=== PATIENT | female | born 1995 | race African-American/Black ===

== ENCOUNTER 2019-02-04 22:45 | Inpatient (IN) | payer OTHER ==
[~2019-02-04] VITALS: Ht 160 cm; Wt 52.2 kg
[2019-02-04] MEDS ORDERED: SODIUM CHLORIDE 0.9% 1,000 ML IV ONE (23:41)
[2019-02-04] MEDS ORDERED: ONDANSETRON HCL 4MG/2ML INJ IV STA (23:41)
[2019-02-04] MEDS ORDERED: MORPHINE SULFATE 4 MG/ML CPJ (NOT FOR IM USE) IV STA (23:41)
[2019-02-04] MEDS ORDERED: LORAZEPAM 2MG/ML CPJ IV ONE (23:45)
[2019-02-05 00:37] LABS: CLARITY URINE CLEAR (CLEAR); COLOR URINE YELLOW (YELLOW); KETONES URINE NEGATIVE (NEGATIVE); LEUKOCYTE ESTERASE URINE NEGATIVE (NEGATIVE); NITRITE URINE NEGATIVE (NEGATIVE); OCCULT BLOOD URINE NEGATIVE (NEGATIVE); PH URINE 6.5 (4.5-8.0); PROTEIN URINE NEGATIVE (NEGATIVE); SPECIFIC GRAVITY URINE 1.002 (1.005-1.030); UROBILINOGEN URINE 0.2 E.U./dL (0.2-1.0)
[2019-02-05 00:42] LABS: CHLORIDE 104 mEq/L (98-107)
[2019-02-05 00:49] LABS: *AMPHETAMINES SCREEN URINE NEGATIVE (NEGATIVE); *BARBITURATES SCREEN URINE NEGATIVE (NEGATIVE); *BENZODIAZEPINES SCREEN URINE NEGATIVE (NEGATIVE); *COCAINE SCREEN URINE NEGATIVE (NEGATIVE); PHENCYCLIDINE URINE SCREEN NEGATIVE (NEGATIVE)
[2019-02-05 00:50] LABS: METHADONE URINE SCREEN NEGATIVE (NEGATIVE)
[2019-02-05 00:56] LABS: CANNABINOID URINE SCREEN PRESUMTIVE POSITIVE (NEGATIVE); OPIATES URINE SCREEN PRESUMTIVE POSITIVE (NEGATIVE)
[2019-02-05 01:00] LABS: HEMATOCRIT. 25.3 % (36.0-48.0); HEMOGLOBIN. 9.2 g/dL (12.0-16.0); MEAN CORPUSCULAR HEMOGLOBIN 36.4 pg (28.0-32.0); MEAN PLATELET VOLUME 9.5 fl (7.4-10.4); PLATELET 472 x1000/uL (130-400); RED BLOOD CELL COUNT 2.53 mill/uL (4.2-5.4); RED CELL DISTRIBUTION WIDTH 18.7 % (11.6-14.6)
[2019-02-05 01:46] LABS: NUCLEATED RED BLOOD CELLS 3 /100 WBC; PLATELET ESTIMATE INCREASED
[2019-02-05] MEDS ORDERED: KETOROLAC 30MG/ML VIAL IV ONE (02:00)
[2019-02-05] MEDS ORDERED: MIDAZOLAM HCL 2 MG/2 ML VIAL IV ONE (02:00)
[2019-02-05 04:00] VITALS: BP 102/59
[2019-02-05] MEDS ORDERED: MORPHINE SULFATE 2 MG/ML CPJ (NOT FOR IM USE) IV PRN (05:30)
[2019-02-05 05:52] VITALS: BP 102/59
[2019-02-05] MEDS ORDERED: HYDROMORPHONE HCL/PF 2MG/ML CPJ IV PRN (06:30)
[2019-02-05] MEDS: SODIUM CHLORIDE 0.9% 1,000 ML IV SCH (06:46)
[2019-02-05 08:00] VITALS: BP 108/63
[2019-02-05 08:27] LABS: EOSINOPHILS % 2.2 % (0.0-5.0); HEMATOCRIT. 25.6 % (36.0-48.0); HEMOGLOBIN. 8.9 g/dL (12.0-16.0); LYMPHOCYTES % 20.9 % (20.0-50.0); MEAN CORPUSCULAR HEMOGLOBIN 35.6 pg (28.0-32.0); MEAN PLATELET VOLUME 9.2 fl (7.4-10.4); NEUTROPHILS % 66.9 % (40.0-76.0); PLATELET 426 x1000/uL (130-400); RED CELL DISTRIBUTION WIDTH 18.4 % (11.6-14.6)
[2019-02-05 08:29] LABS: CHLORIDE 110 mEq/L (98-107)
[2019-02-05] MEDS: ASCORBIC ACID 500 MG TABLET PO SCH ×2 (09:00→20:48)
[2019-02-05] MEDS ORDERED: HYDROCODONE/ACETAMINOPHEN 5/325MG TABLET PO PRN (09:15)
[2019-02-05] MEDS: HYDROMORPHONE HCL/PF 2MG/ML CPJ IV PRN ×3 (09:22→20:46)
[2019-02-05 12:00] VITALS: BP 95/53
[2019-02-05] MEDS ORDERED: ONDANSETRON HCL 4MG/2ML INJ IV PRN (13:00)
[2019-02-05] MEDS ORDERED: ONDANSETRON INJ IV PRN (13:30)
[2019-02-05] MEDS ORDERED: NALOXONE INJ IV PRN (13:30)
[2019-02-05] MEDS: OXYCODONE HCL/ACETAMINOPHEN 5/325MG TABLET PO PRN (14:07)
[2019-02-05] MEDS: HYDROXYUREA 500MG CAPSULE PO SCH ×2 (14:07→16:38)
[2019-02-05] MEDS: FOLIC ACID 1MG TABLET PO SCH (14:07)
[2019-02-05] MEDS: CEFTRIAXONE 1 G PREMIX 50 ML IV SCH (14:08)
[2019-02-05] MEDS ORDERED: OXYC-105 MT (15:18)
[2019-02-05] MEDS ORDERED: FOLI-43 MT (15:18)
[2019-02-05] MEDS ORDERED: HYDR500C MT (15:18)
[2019-02-05] MEDS: HYDROMORPHONE PCA 10MG/50ML IV PRN (15:58)
[2019-02-05 16:00] VITALS: BP 97/49
[2019-02-05] MEDS ORDERED: KETOROLAC 15MG/ML VIAL IV PRN (16:15)
[2019-02-05] MEDS: AZITHROMYCIN 500 MG TABLET PO SCH (16:38)
[2019-02-05 20:40] VITALS: BP 104/70
[2019-02-05] MEDS: DIPHENHYDRAMINE INJ IV PRN (20:48)
[2019-02-06 00:41] VITALS: BP 116/64
[2019-02-06] MEDS: SODIUM CHLORIDE 0.9% 1,000 ML IV SCH ×2 (02:06→09:53)
[2019-02-06 04:00] VITALS: BP 103/68
[2019-02-06] MEDS: DIPHENHYDRAMINE INJ IV PRN ×3 (06:24→21:57)
[2019-02-06 08:00] VITALS: BP 105/71
[2019-02-06 09:43] LABS: HEMATOCRIT. 25.9 % (36.0-48.0); MEAN CORPUSCULAR HEMOGLOBIN 35.4 pg (28.0-32.0); MEAN CORPUSCULAR VOLUME 102.4 fL (81.0-99.0); MEAN PLATELET VOLUME 9.2 fl (7.4-10.4); PLATELET 453 x1000/uL (130-400); RED BLOOD CELL COUNT 2.53 mill/uL (4.2-5.4); RED CELL DISTRIBUTION WIDTH 16.1 % (11.6-14.6)
[2019-02-06] MEDS: FOLIC ACID 1MG TABLET PO SCH (09:51)
[2019-02-06] MEDS: ASCORBIC ACID 500 MG TABLET PO SCH ×2 (09:51→21:28)
[2019-02-06] MEDS: HYDROXYUREA 500MG CAPSULE PO SCH ×3 (09:51→17:14)
[2019-02-06] MEDS: AZITHROMYCIN 500 MG TABLET PO SCH (09:51)
[2019-02-06 10:00] LABS: CHLORIDE 105 mEq/L (98-107)
[2019-02-06 12:00] VITALS: BP 113/62
[2019-02-06] MEDS: HYDROMORPHONE HCL/PF 2MG/ML CPJ IV PRN ×2 (12:20→17:40)
[2019-02-06] MEDS: CEFTRIAXONE 1 G PREMIX 50 ML IV SCH (13:19)
[2019-02-06 16:00] VITALS: BP 110/62
[2019-02-06] MEDS: ACETAMINOPHEN 325MG TABLET PO PRN (17:14)
[2019-02-06 19:08] LABS: NUCLEATED RED BLOOD CELLS 4 /100 WBC; PLATELET ESTIMATE INCREASED
[2019-02-06 20:00] VITALS: BP 104/65
[2019-02-06] MEDS: OXYCODONE HCL/ACETAMINOPHEN 5/325MG TABLET PO PRN (20:23)
[2019-02-06] MEDS: HYDROMORPHONE PCA 10MG/50ML IV PRN (21:15)
[2019-02-07] VITALS (7 sets, daily range): BP systolic 99–127; BP diastolic 60–90
[2019-02-07] MEDS: SODIUM CHLORIDE 0.9% 1,000 ML IV SCH ×2 (00:21→13:04)
[2019-02-07] MEDS: HYDROMORPHONE HCL/PF 2MG/ML CPJ IV PRN ×4 (00:22→19:39)
[2019-02-07] MEDS: OXYCODONE HCL/ACETAMINOPHEN 5/325MG TABLET PO PRN ×2 (06:45→21:57)
[2019-02-07 07:05] LABS: CHLORIDE 105 mEq/L (98-107)
[2019-02-07 07:07] LABS: HEMATOCRIT. 22.2 % (36.0-48.0); HEMOGLOBIN. 7.9 g/dL (12.0-16.0); MEAN CORPUSCULAR HEMOGLOBIN 35.1 pg (28.0-32.0); MEAN CORPUSCULAR VOLUME 98.9 fL (81.0-99.0); PLATELET 313 x1000/uL (130-400); RED BLOOD CELL COUNT 2.25 mill/uL (4.2-5.4); RED CELL DISTRIBUTION WIDTH 16.1 % (11.6-14.6)
[2019-02-07] MEDS: ASCORBIC ACID 500 MG TABLET PO SCH ×2 (09:44→21:14)
[2019-02-07] MEDS: HYDROXYUREA 500MG CAPSULE PO SCH ×4 (09:44→17:33)
[2019-02-07] MEDS: AZITHROMYCIN 500 MG TABLET PO SCH (09:44)
[2019-02-07] MEDS: FOLIC ACID 1MG TABLET PO SCH (09:44)
[2019-02-07] MEDS: CEFTRIAXONE 1 G PREMIX 50 ML IV SCH (13:04)
[2019-02-07] MEDS ORDERED: MORPHINE SULFATE 4 MG/ML CPJ (NOT FOR IM USE) IV SCH (14:15)
[2019-02-07] MEDS ORDERED: SODIUM CHLORIDE 0.9% 1,000 ML IV SCH (14:15)
[2019-02-07 17:16] LABS: BG BASE EXCESS -1.7 mmol/L (-2.0-2.0); BG CARBOXYHEMOGLOBIN 3.9 % (0.5-1.5); BG DEOXYHEMOGLOBIN 0.7 % (0.0-5.0); BG FRACTION INSPIRED OXYGEN 100; BG HCO3 ACT 22.3 mmol/L (22.0-26.0); BG METHEMOGLOBIN 0.7 % (0.0-1.5); BG OXYGEN SATURATION 99.3 % (92.0-98.5); BG OXYHEMOGLOBIN 94.7 % (94.0-97.0); BG PCO2 33.8 mmHg (35.0-45.0); BG PH 7.438 (7.350-7.450); BG PO2 187.2 mmHg (75.0-100.0); BG SAMPLE SITE RIGHT BRACHIAL; BG TOTAL HEMOGLOBIN 6.5 g/dL (12.0-18.0); BG VENT MODE MASK - NRB
[2019-02-07] MEDS ORDERED: METOPROLOL TARTRATE 5MG/5ML VIAL IV NR (18:00)
[2019-02-07] MEDS ORDERED: METOPROLOL TARTRATE 5MG/5ML VIAL IV PRN (18:00)
[2019-02-07 20:29] LABS: PLATELET ESTIMATE NORMAL
[2019-02-07] MEDS ORDERED: METOPROLOL TARTRATE 25MG TABLET PO SCH (21:00)
[2019-02-07] MEDS: HYDROMORPHONE PCA 10MG/50ML IV PRN (21:26)
[2019-02-08] VITALS (14 sets, daily range): BP systolic 94–121; BP diastolic 54–78
[2019-02-08] MEDS: DIPHENHYDRAMINE INJ IV PRN ×4 (04:48→20:46)
[2019-02-08] MEDS: ACETAMINOPHEN 325MG TABLET PO PRN (04:48)
[2019-02-08 07:50] LABS: BG BASE EXCESS -1.5 mmol/L (-2.0-2.0); BG CARBOXYHEMOGLOBIN 0.9 % (0.5-1.5); BG DEOXYHEMOGLOBIN 0.5 % (0.0-5.0); BG FRACTION INSPIRED OXYGEN 100; BG HCO3 ACT 22.3 mmol/L (22.0-26.0); BG METHEMOGLOBIN 0.7 % (0.0-1.5); BG OXYGEN SATURATION 99.5 % (92.0-98.5); BG OXYHEMOGLOBIN 97.9 % (94.0-97.0); BG PCO2 33.5 mmHg (35.0-45.0); BG PH 7.442 (7.350-7.450); BG PO2 339.9 mmHg (75.0-100.0); BG SAMPLE SITE RIGHT BRACHIAL; BG TOTAL HEMOGLOBIN 7.7 g/dL (12.0-18.0); BG VENT MODE MASK - NRB
[2019-02-08] MEDS: HYDROXYUREA 500MG CAPSULE PO SCH ×3 (08:35→18:25)
[2019-02-08] MEDS: ASCORBIC ACID 500 MG TABLET PO SCH ×2 (08:35→20:23)
[2019-02-08] MEDS: FOLIC ACID 1MG TABLET PO SCH (08:35)
[2019-02-08] MEDS: AZITHROMYCIN 500 MG TABLET PO SCH (08:35)
[2019-02-08] MEDS: SODIUM CHLORIDE 0.9% 1,000 ML IV SCH (08:47)
[2019-02-08 10:36] LABS: MEAN CORPUSCULAR HEMOGLOBIN 32.8 pg (28.0-32.0); MEAN CORPUSCULAR VOLUME 92.5 fL (81.0-99.0); MEAN PLATELET VOLUME 9.9 fl (7.4-10.4); PLATELET 335 x1000/uL (130-400); RED BLOOD CELL COUNT 2.09 mill/uL (4.2-5.4); RED CELL DISTRIBUTION WIDTH 18.1 % (11.6-14.6)
[2019-02-08 10:40] LABS: CHLORIDE 109 mEq/L (98-107); HEMATOCRIT. 19.4 % (36.0-48.0); HEMOGLOBIN. 6.9 g/dL (12.0-16.0)
[2019-02-08] MEDS ORDERED: DIPHENHYDRAMINE 50MG/ML VIAL IV NR (11:00)
[2019-02-08] MEDS ORDERED: ACETAMINOPHEN 325MG TABLET PO NR (11:00)
[2019-02-08] MEDS: DEXT 5%/0.45% NACL 1000ML 1,000 ML IV SCH ×2 (11:22→20:23)
[2019-02-08 11:25] LABS: NUCLEATED RED BLOOD CELLS 3 /100 WBC; PLATELET ESTIMATE NORMAL
[2019-02-08] MEDS: CEFTRIAXONE 1 G PREMIX 50 ML IV SCH (15:43)
[2019-02-08] MEDS: OXYCODONE HCL/ACETAMINOPHEN 5/325MG TABLET PO PRN (16:48)
[2019-02-08 17:48] LABS: HCG SCREEN NEGATIVE
[2019-02-08] MEDS: HYDROMORPHONE PCA 10MG/50ML IV PRN (18:04)
[2019-02-09] VITALS: BP 105/66
[2019-02-09] MEDS: HYDROMORPHONE HCL/PF 2MG/ML CPJ IV PRN ×4 (01:10→20:29)
[2019-02-09 04:00] VITALS: BP 111/68
[2019-02-09] MEDS: DIPHENHYDRAMINE INJ IV PRN ×3 (04:33→19:59)
[2019-02-09] MEDS: OXYCODONE HCL/ACETAMINOPHEN 5/325MG TABLET PO PRN (04:34)
[2019-02-09] MEDS: DEXT 5%/0.45% NACL 1000ML 1,000 ML IV SCH ×2 (05:33→12:48)
[2019-02-09 05:50] LABS: CHLORIDE 107 mEq/L (98-107)
[2019-02-09 06:29] LABS: BASOPHILS % 1.3 % (0.0-2.0); EOSINOPHILS % 2.5 % (0.0-5.0); HEMATOCRIT. 23.6 % (36.0-48.0); HEMOGLOBIN. 8.2 g/dL (12.0-16.0); LYMPHOCYTES % 13.8 % (20.0-50.0); MEAN CORPUSCULAR HEMOGLOBIN 31.7 pg (28.0-32.0); MEAN CORPUSCULAR VOLUME 91.8 fL (81.0-99.0); NEUTROPHILS % 72.4 % (40.0-76.0); PLATELET 355 x1000/uL (130-400); RED BLOOD CELL COUNT 2.57 mill/uL (4.2-5.4); RED CELL DISTRIBUTION WIDTH 18.3 % (11.6-14.6)
[2019-02-09 08:00] VITALS: BP 102/68
[2019-02-09] MEDS: FOLIC ACID 1MG TABLET PO SCH (08:42)
[2019-02-09] MEDS: HYDROXYUREA 500MG CAPSULE PO SCH ×3 (08:42→17:03)
[2019-02-09] MEDS: AZITHROMYCIN 500 MG TABLET PO SCH (08:42)
[2019-02-09] MEDS: ASCORBIC ACID 500 MG TABLET PO SCH ×2 (08:42→21:00)
[2019-02-09] MEDS ORDERED: POTASSIUM CHLORIDE 20MEQ TABLET SR PO SCH (11:00)
[2019-02-09 12:28] VITALS: BP 102/64
[2019-02-09] MEDS: CEFTRIAXONE 1 G PREMIX 50 ML IV SCH (13:59)
[2019-02-09 16:31] VITALS: BP 108/71
[2019-02-09 20:00] VITALS: BP 101/67
[2019-02-09] MEDS: HYDROMORPHONE PCA 10MG/50ML IV PRN (20:52)
[2019-02-10] VITALS: BP 107/63
[2019-02-10] MEDS: DEXT 5%/0.45% NACL 1000ML 1,000 ML IV SCH ×3 (00:05→16:46)
[2019-02-10] MEDS: HYDROMORPHONE HCL/PF 2MG/ML CPJ IV PRN ×6 (00:21→21:30)
[2019-02-10 04:00] VITALS: BP 107/67
[2019-02-10 07:57] VITALS: BP 114/63
[2019-02-10] MEDS: HYDROXYUREA 500MG CAPSULE PO SCH ×3 (09:01→16:43)
[2019-02-10] MEDS: ASCORBIC ACID 500 MG TABLET PO SCH ×2 (09:02→20:19)
[2019-02-10] MEDS: FOLIC ACID 1MG TABLET PO SCH (09:02)
[2019-02-10] MEDS: AZITHROMYCIN 500 MG TABLET PO SCH (09:02)
[2019-02-10] MEDS: DIPHENHYDRAMINE INJ IV PRN ×3 (10:09→20:18)
[2019-02-10 12:00] VITALS: BP 111/59
[2019-02-10] MEDS: CEFTRIAXONE 1 G PREMIX 50 ML IV SCH (15:14)
[2019-02-10] MEDS: ACETYLCYSTEINE 100MG/ML 10% VIAL 4ML INH SCH ×2 (15:57→23:58)
[2019-02-10] MEDS: ALBUTEROL (0.083%) 2.5MG/3ML NEB HHN SCH ×3 (15:57→23:58)
[2019-02-10 16:59] VITALS: BP 107/64
[2019-02-10] MEDS ORDERED: FUROSEMIDE 40MG/4ML VIAL IVP NR (17:15)
[2019-02-10 17:59] LABS: HEMATOCRIT. 22.6 % (36.0-48.0); HEMOGLOBIN. 7.9 g/dL (12.0-16.0); MEAN CORPUSCULAR HEMOGLOBIN 33.9 pg (28.0-32.0); MEAN CORPUSCULAR VOLUME 96.6 fL (81.0-99.0); MEAN PLATELET VOLUME 9.5 fl (7.4-10.4); PLATELET 386 x1000/uL (130-400); RED BLOOD CELL COUNT 2.34 mill/uL (4.2-5.4); RED CELL DISTRIBUTION WIDTH 19.8 % (11.6-14.6)
[2019-02-10 18:10] LABS: CHLORIDE 107 mEq/L (98-107)
[2019-02-10 18:16] LABS: BG BASE EXCESS 2.3 mmol/L (-2.0-2.0); BG CARBOXYHEMOGLOBIN 2.5 % (0.5-1.5); BG HCO3 ACT 26.6 mmol/L (22.0-26.0); BG METHEMOGLOBIN 0.4 % (0.0-1.5); BG OXYGEN SATURATION 87.6 % (92.0-98.5); BG OXYHEMOGLOBIN 85.1 % (94.0-97.0); BG PCO2 40.5 mmHg (35.0-45.0); BG PH 7.436 (7.350-7.450); BG PO2 57.5 mmHg (75.0-100.0); BG SAMPLE SITE RIGHT RADIAL; BG TOTAL HEMOGLOBIN 9.4 g/dL (12.0-18.0); BG VENT MODE ROOM AIR
[2019-02-10] MEDS: HYDROMORPHONE PCA 10MG/50ML IV PRN (18:35)
[2019-02-10 19:37] LABS: NUCLEATED RED BLOOD CELLS 14 /100 WBC; PLATELET ESTIMATE NORMAL
[2019-02-10 20:00] VITALS: BP 108/83
[2019-02-10] MEDS: GUAIFENESIN 600MG ER TABLET PO SCH (20:19)
[2019-02-10] MEDS ORDERED: POTASSIUM CHLORIDE INJ 40 MEQ in DEXT 5% WATER 250 ML IV NR (21:15)
[2019-02-10] MEDS ORDERED: POTASSIUM CHLORIDE 20MEQ TABLET SR PO NR (22:17)
[2019-02-10] MEDS: POTASSIUM CHLORIDE 20MEQ TABLET SR PO SCH (22:27)
[2019-02-11] VITALS: BP 96/58
[2019-02-11] MEDS: POTASSIUM CHLORIDE 20MEQ TABLET SR PO SCH (01:30)
[2019-02-11] MEDS: HYDROMORPHONE HCL/PF 2MG/ML CPJ IV PRN ×4 (02:07→20:35)
[2019-02-11 04:00] VITALS: BP 98/48
[2019-02-11] MEDS: ALBUTEROL (0.083%) 2.5MG/3ML NEB HHN SCH ×5 (04:21→20:06)
[2019-02-11 06:52] LABS: HEMATOCRIT. 24.4 % (36.0-48.0); HEMOGLOBIN. 8.5 g/dL (12.0-16.0); MEAN CORPUSCULAR VOLUME 97.8 fL (81.0-99.0); MEAN PLATELET VOLUME 9.8 fl (7.4-10.4); PLATELET 413 x1000/uL (130-400); RED BLOOD CELL COUNT 2.49 mill/uL (4.2-5.4); RED CELL DISTRIBUTION WIDTH 19.2 % (11.6-14.6)
[2019-02-11 07:28] LABS: CHLORIDE 107 mEq/L (98-107)
[2019-02-11] MEDS: ACETYLCYSTEINE 100MG/ML 10% VIAL 4ML INH SCH ×2 (07:56→16:10)
[2019-02-11 08:00] VITALS: BP 92/50
[2019-02-11] MEDS: GUAIFENESIN 600MG ER TABLET PO SCH ×2 (09:52→20:35)
[2019-02-11] MEDS: ASCORBIC ACID 500 MG TABLET PO SCH ×2 (09:53→20:35)
[2019-02-11] MEDS: FOLIC ACID 1MG TABLET PO SCH (09:53)
[2019-02-11] MEDS: HYDROXYUREA 500MG CAPSULE PO SCH ×3 (09:53→17:45)
[2019-02-11] MEDS: AZITHROMYCIN 500 MG TABLET PO SCH (09:53)
[2019-02-11 12:00] VITALS: BP 101/65
[2019-02-11] MEDS: CEFTRIAXONE 1 G PREMIX 50 ML IV SCH (13:12)
[2019-02-11] MEDS: ACETAMINOPHEN 325MG TABLET PO PRN (13:12)
[2019-02-11] MEDS: DIPHENHYDRAMINE INJ IV PRN ×2 (13:36→23:55)
[2019-02-11] MEDS ORDERED: FUROSEMIDE 20MG/2ML VIAL IVP SCH (13:45)
[2019-02-11 13:52] LABS: NUCLEATED RED BLOOD CELLS 69 /100 WBC
[2019-02-11 13:55] LABS: PLATELET ESTIMATE SLIGHTLY INCREASED
[2019-02-11] MEDS ORDERED: POTASSIUM CHLORIDE INJ 40 MEQ in DEXT 5% WATER 250 ML IV SCH (14:00)
[2019-02-11] MEDS ORDERED: FUROSEMIDE 40MG/4ML VIAL IVP SCH (14:15)
[2019-02-11 16:11] VITALS: BP 100/59
[2019-02-11] MEDS: HYDROMORPHONE PCA 10MG/50ML IV PRN (18:23)
[2019-02-11 20:00] VITALS: BP 100/53
[2019-02-12] VITALS (7 sets, daily range): BP systolic 88–101; BP diastolic 52–66
[2019-02-12] MEDS: ACETYLCYSTEINE 100MG/ML 10% VIAL 4ML INH SCH ×4 (00:18→22:00)
[2019-02-12] MEDS: ALBUTEROL (0.083%) 2.5MG/3ML NEB HHN SCH ×6 (00:18→21:02)
[2019-02-12] MEDS: HYDROMORPHONE HCL/PF 2MG/ML CPJ IV PRN ×4 (04:22→22:26)
[2019-02-12 07:15] LABS: CHLORIDE 107 mEq/L (98-107)
[2019-02-12 07:37] LABS: HEMATOCRIT. 23.4 % (36.0-48.0); HEMOGLOBIN. 8.1 g/dL (12.0-16.0); MEAN CORPUSCULAR HEMOGLOBIN 34.3 pg (28.0-32.0); MEAN CORPUSCULAR VOLUME 99.8 fL (81.0-99.0); MEAN PLATELET VOLUME 8.9 fl (7.4-10.4); PLATELET 385 x1000/uL (130-400); RED BLOOD CELL COUNT 2.35 mill/uL (4.2-5.4); RED CELL DISTRIBUTION WIDTH 23.5 % (11.6-14.6)
[2019-02-12] MEDS: HYDROXYUREA 500MG CAPSULE PO SCH ×3 (08:15→18:06)
[2019-02-12] MEDS: FOLIC ACID 1MG TABLET PO SCH (08:15)
[2019-02-12] MEDS: GUAIFENESIN 600MG ER TABLET PO SCH ×2 (08:15→20:48)
[2019-02-12] MEDS: HYDROMORPHONE PCA 10MG/50ML IV PRN ×2 (08:15→21:49)
[2019-02-12] MEDS: AZITHROMYCIN 500 MG TABLET PO SCH (08:15)
[2019-02-12] MEDS: ACETAMINOPHEN 325MG TABLET PO PRN ×2 (08:16→20:48)
[2019-02-12] MEDS: ASCORBIC ACID 500 MG TABLET PO SCH ×2 (08:19→20:48)
[2019-02-12] MEDS ORDERED: CAPSAICIN 0.075% CREAM 60GM TOP PRN (11:00)
[2019-02-12] MEDS: POTASSIUM CHLORIDE 20MEQ/PACKET PO SCH ×2 (12:03→15:04)
[2019-02-12 13:11] LABS: HGB A 19.8 % (96.4-98.8); HGB A2 3.8 % (1.8-3.2); HGB F 11.3 % (0.0-2.0); HGB S 65.1 % (0.0); HGB SOLUBILITY Positive (Negative)
[2019-02-12] MEDS: CEFTRIAXONE 1 G PREMIX 50 ML IV SCH (15:03)
[2019-02-12 17:09] LABS: NUCLEATED RED BLOOD CELLS 51 /100 WBC; PLATELET ESTIMATE NORMAL
[2019-02-12] MEDS ORDERED: OXYCODONE HCL/ACETAMINOPHEN 5/325MG TABLET PO PRN (17:30)
[2019-02-13] VITALS (8 sets, daily range): BP systolic 98–103; BP diastolic 2–68
[2019-02-13] MEDS: ALBUTEROL (0.083%) 2.5MG/3ML NEB HHN SCH ×3 (01:45→12:16)
[2019-02-13] MEDS: DIPHENHYDRAMINE INJ IV PRN ×2 (02:10→11:40)
[2019-02-13] MEDS: ACETYLCYSTEINE 100MG/ML 10% VIAL 4ML INH SCH (07:50)
[2019-02-13 07:54] LABS: MEAN CORPUSCULAR HEMOGLOBIN 34.6 pg (28.0-32.0); MEAN CORPUSCULAR VOLUME 100.4 fL (81.0-99.0); MEAN PLATELET VOLUME 8.8 fl (7.4-10.4); PLATELET 452 x1000/uL (130-400); RED BLOOD CELL COUNT 2.59 mill/uL (4.2-5.4); RED CELL DISTRIBUTION WIDTH 28.1 % (11.6-14.6)
[2019-02-13 07:57] LABS: CHLORIDE 104 mEq/L (98-107)
[2019-02-13] MEDS: HYDROXYUREA 500MG CAPSULE PO SCH ×3 (09:12→17:50)
[2019-02-13] MEDS: ASCORBIC ACID 500 MG TABLET PO SCH (09:12)
[2019-02-13] MEDS: GUAIFENESIN 600MG ER TABLET PO SCH (09:12)
[2019-02-13] MEDS: FOLIC ACID 1MG TABLET PO SCH (09:12)
[2019-02-13] MEDS ORDERED: DEXT 5%/0.45% NACL 1000ML 1,000 ML IV SCH (10:30)
[2019-02-13] MEDS ORDERED: KCL 20MEQ/100ML PREMIX 100 ML IV SCH (12:00)
[2019-02-13 15:39] LABS: NUCLEATED RED BLOOD CELLS 16 /100 WBC
[2019-02-13 15:40] LABS: PLATELET ESTIMATE INCREASED
== END 2019-02-13 18:05 | disposition home or self-care (01) | DRG 871 ==
LOC: ER 22:45 → 8WST 02-05 01:50 → EDBEDREQ 02-05 01:51 → EDBEDREQTM 02-05 01:51 → ENRESERV 02-05 03:12
PROVIDERS: ADMIT Internal Medicine; ATTEND Internal Medicine
PROC: 30233N1 Transfusion of Nonautologous Red Blood Cells into Peripheral Vein, Percutaneous Approach (ICD-10-PCS; 2019-02-08)
PROC: 02HV33Z Insertion of Infusion Device into Superior Vena Cava, Percutaneous Approach (ICD-10-PCS; principal; 2019-02-11)
PROC: B518ZZA Fluoroscopy of Superior Vena Cava, Guidance (ICD-10-PCS; 2019-02-11)
PROC: B548ZZA Ultrasonography of Superior Vena Cava, Guidance (ICD-10-PCS; 2019-02-11)
DX: A41.9 Sepsis, unspecified organism (principal); D57.00 Hb-SS disease with crisis, unspecified; J18.1 Lobar pneumonia, unspecified organism; J96.01 Acute respiratory failure with hypoxia; J98.11 Atelectasis; J81.1 Chronic pulmonary edema; E87.70 Fluid overload, unspecified; R10.9 Unspecified abdominal pain; R07.9 Chest pain, unspecified; F12.90 Cannabis use, unspecified, uncomplicated; E87.6 Hypokalemia; Z90.81 Acquired absence of spleen; Z87.01 Personal history of pneumonia (recurrent); Z90.49 Acquired absence of other specified parts of digestive tract; Z88.7 Allergy status to serum and vaccine; Z79.899 Other long term (current) drug therapy
CPT/HCPCS: 36415; 36573; 36600; 71045; 71250; 78580; 80048; 80305; 82375; 82805; 83021; 83605; 84145; 84484; 84703; 85044; 85660; 86850; 86900; 86920; 87070; 93005; 93306; 94640; 96374; 97162; 97166; 97535; 99285; A6261; C1725; C1893; J0696; J1170; J1200; J1885; J1940; J2060; J2250; J2270; J2310; J2405; J3480; J3490; J7030; J7040; J7050; J7060; J7070; J7608; J7611; P9016